=== PATIENT | female | born 1995 | race Caucasian/White ===

== ENCOUNTER 2016-09-07 15:30 | Emergency (ER) | payer OTHER ==
[~2016-09-07 15:30] MED LIST: IBUP100O80 PO; ONDA8TAB10 PO
[2016-09-07 15:44] VITALS: BP 110/82; PULSE 80; RESP 16; O2SAT 100
--- NOTE | 2016-09-07 16:04 | ED.REPORT ---
HPI-Psychiatric Illness Date of Service Sep 07, 2016 ED Provider: Saw Lugo MD Patient is a 20 year old female who presents to the ED via police after telling her college counselor that she is feeling suicidal due to increased stress. She reports that she has had suicidal ideations for the past year that have been getting worse over the past month or so. She states "I try not to act on those thoughts but I have done it once before" and "I am afraid of dying so that helps keep me from doing it". She does report to self mutilating via cutting as recently as a week ago. She has active plans for committing suicide based on her environment. Her plans range from jumping off of buildings, jumping in front of traffic, and overdosing on pills. She was previously prescribes Citalopram which she took for a few months but stopped taking about a week ago because she ran out and is not sure if she still has insurance. She reports that is was not helpful and she still had suicidal thoughts. She does not have any prior psychiatric admissions but she was seen in the department in May for an attempted overdose. She is not currently working with a psychiatrist. She does not have any further complaints. Nursing Notes Stated Complaint: SUICIDAL Chief Complaint: Psychiatric Complaint Nursing Notes Reviewed: Yes (LendingStandard not reconciled) Allergies: Coded Allergies: No Known Allergies (Unverified , 01/21/16) Scheduled Ibuprofen (Child Ibuprofen) 100 Mg/5 Ml Oral.susp 400 MG PO QID Scheduled PRN Ondansetron ODT (Ondansetron ODT) 8 Mg Tab.rapdis 8 MG PO QID PRN PRN For Nausea General Time Seen by MD: 15:40 Chief Complaint Suicidal ideation Hx Obtained From: Patient Arrived By: Police Immunizations: Unknown Similar Sx Previous: Yes Risk-Psychiatric Illness Suicide Risk Stratification Suicide Risk Factors - Adult: : Previous attemptNo: Prior psych admission RF Statements: Risk factors reviewed Past Medical History Past Medical History Notes: Injury visit 06/02/2016 for depression with intentional overdose, evaluated by DCR and discharged to home Past Medical History Anxiety "Back issues" bulimia Reports: GERD Reports: Depression Past Surgical History None Smoking History Never Smoker Social History Independent, lives locally and works at [employer] Alcohol Use: Denies alcohol use Drug Use: Denies drug use Other Social History: Good social support, Local resident Ambulatory Status Independent Review of Systems Psychiatric: Reports: Depression, Stress, Suicidal ideation, Denies: Homicidal ideation Complete sys rev & neg: except as marked. Physical Exam Initial Vital Signs Vital Signs (First) Date Time Temp Pulse Resp B/P Pulse Ox O2 Delivery O2 Flow Rate FiO2 09/07/16 15:44 36.1 80 16 110/82 100 Room Air Initial VS: Reviewed, Vital signs normal Head / Eyes: Atraumatic, Normocephalic Neck: Full range of motion Respiratory: No respiratory distress Cardiovascular: Regular rate & rhythm, Heart sounds normal Skin: Warm, Dry General/Constitutional: Awake, Alert, Well developed Not intoxicated or in withdrawal. Neurologic: Oriented X3, Speech NL Abnormal Mood/Affect: Positive: Depressed Limited insight Upper Extremity / MS: Full range of motion Superficial healed scars on both forearms. Interpretation & Diagnostics Lab Results Interpretation Result Diagram: 09/07/16 1622 09/07/16 1622 Test 09/07/16 15:45 09/07/16 16:22 Hold Urine Received (Received) White Blood Count 6.1th/mm3 (3.8-10.1) Red Blood Count 4.71mil/mm3 (3.90-5.20) Hemoglobin 13.5g/dL (12.0-15.6) Hematocrit 40.0% (35.0-46.0) Mean Corpuscular Volume 84.9fL (81-100) Mean Corpuscular Hemoglobin 28.7pg (27.0-35.0) Mean Corpuscular Hemoglobin Concent 33.8% (32.0-37.0) Red Cell Distribution Width 12.1% (12.3-15.4) Platelet Count 307bil/L (150-400) Neutrophils (%) (Auto) 42.6% (40-74) Lymphocytes (%) (Auto) 45.8% (14-46) Monocytes (%) (Auto) 9.9% (4-12) Eosinophils (%) (Auto) 1.0% (0-5) Basophils (%) (Auto) 0.5% (0-3) Sodium Level 139mEq/L (134-144) Potassium Level 4.0mEq/L (3.5-5.2) Chloride Level 99mEq/L (97-108) Carbon Dioxide Level 28mmol/L (18-29) Blood Urea Nitrogen 7mg/dL (6-20) Creatinine 0.56mg/dL (0.57-1.00) Estimat Glomerular Filtration Rate 200mL/min (>59) Glucose Level 101mg/dL (60-99) Calcium Level 9.4mg/dL (8.5-10.1) Total Bilirubin 0.2mg/dL (0.0-1.2) Aspartate Amino Transf (AST/SGOT) 19U/L (0-50) Alanine Aminotransferase (ALT/SGPT) 14U/L (0-32) Alkaline Phosphatase 77U/L (25-150) Total Protein 7.3g/dL (6.4-8.4) Albumin 4.6g/dL (3.4-5.0) Thyroid Stimulating Hormone (TSH) 1.940uIU/mL (0.450-4.500) Hold Milner Top Tube Received (Received) Alcohol, Quantitative < 10mg/dL (0-10) Lab Results Interpretation: CBC normal CMP normal negative U tox negative Alcohol negative Re-Eval/Medical Decision Med Decision/Clinical Course This is a 20-year-old female was referred in by school counselor after she disclosed worsening suicidal ideation or the past month, although the patient admits to intermittent suicidal ideation for a longer period. She has had 1 prior attempt ED presentation in May following an overdose. She states she is not really followed up with a counselor or psychiatrist to date. As tried citalopram which she did not think helped at all, and she discontinued several weeks ago-and is not clear how the discontinuation occurred, if it was intentional, for insurance and lack of medication access, or for some other reason. suicidal aeration but has no specific plan, reports suicidal thoughts are contextual-making a comments that sometimes when she sees medicines she thinks about overdose, which is in traffic he thinks about a traffic accident, which she is on a upper floor she thinks about jumping off-but does not think that she actually jumped out, and states that he then adds the statement that "I hope I do not". He does admit to self cutting intermittently, and has some scars on her forearms , but no active wounds. He adamantly denies any recent self harm attempts or overdose. She denies alcohol or drugs. She has a flat, depressed affect. She has limited insight and judgment. He does not appear clinically intoxicated or withdrawal. Aside from the scars on the arms has no other physical exam findings. She is required to have an alcohol level drawn prior to the mental health evaluation, and breathalyzer in the department is not currently functioning, so lab draw was obtained-labs were normal. The patient was seen by the ASSOCIATE SPA DIRECTOR. The patient has agreed to contract for safety , and agrees to a next day follow-up appointment at [facility]. The patient discharged in stable condition. Source of Hx: Old records Re-Evaluation/Progress : Time of Eval: 18:39 )( Re-Eval Psychiatric: No danger to self Re-Evaluation/Progress Note: Patient contracts to safety with social work nurse and agrees to follow up with [facility] tomorrow. Discussed plan for discharge. Patient understands and agrees with plan. All questions addressed at this time. Differential Diagnosis: Positive: Depression, Mood disorder, Suicidal, Negative: Alcohol abuse, Homicidal, Polysubstance abuse, Schizophrenia, Substance abuse Counseled Regarding: Diagnosis, Lab results, Need for follow-up, When/why to return to ED Discharge & Departure Impression: Primary Impression: Depression Depression Type: unspecified Qualified Code: F32.9 - Major depressive disorder, single episode, unspecified Additional Impression: Suicidal ideations )( Condition at Discharge: No danger to self Disposition: Home Discharge Condition All VS Reviewed: Yes Condition: Stable Additional Instructions: 1. Keep the next day appointment that the mental health worker has arranged. 2. Maintain your safety at home as agreed. Call the crisis line at [phone] or return to the emergency department if you do not feel you can remain safe. 3. Your blood work was normal. Referrals: Melvin Currie MD (PCP) Scribe Attestation Portions of this note were transcribed by Kely Tompkins. I, Dr. Lugo personally performed the history, physical exam and medical decision-making; I reviewed and confirmed the accuracy of the information in the transcribed note. Signed by: Kely Tompkins 09/07/2016, [id number] copies to: Melvin Currie MD, Matthew F MD Sep 07, 2016 16:04 KELY TOMPKINS Sep 07, 2016 16:46
[2016-09-07 16:32] LABS: BASOPHILS % (AUTO) 0.5 % (0-3); MONOCYTES % (AUTO) 9.9 % (4-12); Mean Corpuscular Hemoglobin 28.7 pg (27.0-35.0); Mean Corpuscular Volume 84.9 fL (81-100); NEUTROPHILS % (AUTO) 42.6 % (40-74); Platelet Count 307 bil/L (150-400)
[2016-09-07 18:42] VITALS: BP 116/77; PULSE 77; RESP 18; O2SAT 98
[2016-09-07 19:46] VITALS: BP 128/77; PULSE 83; RESP 24; O2SAT 99
== END 2016-09-07 19:48 | disposition home or self-care (01) ==
LOC: SED 15:30
DX: F32.9 Major depressive disorder, single episode, unspecified (principal); R45.851 Suicidal ideations; K21.9 Gastro-esophageal reflux disease without esophagitis
CPT/HCPCS: 36415; 80053; 81002; 81025; 84443; 85025; 99284; G0480

== ENCOUNTER 2016-10-05 19:14 | Inpatient (IN) | payer OTHER ==
[~2016-10-05] VITALS: Ht 151.9 cm; Wt 72.3 kg
[2016-10-05 19:20] VITALS: BP 135/94; PULSE 112; RESP 15; O2SAT 100
--- NOTE | 2016-10-05 19:43 | ED.REPORT ---
HPI-Overdose/Alcohol Toxicity Date of Service Oct 05, 2016 ED Provider: Carlos Herrera MD Patient is a 20 year old female who presents to the ED after taking about 20-25 cyclobenzaprine tabs at 1800 tonight as a suicide attempt. She states she regrets taking the medication which is why she called for help. She took them because she "wanted to " and feels "worthless". She denies using drugs or alcohol tonight. She denies homicidal ideations, hallucinations, or any other symptoms. She previously attempted suicide by taking acetaminophen. Nursing Notes Stated Complaint: TOOK ABOUT 30 FLEXERAL Chief Complaint: Substance Abuse Nursing Notes Reviewed: Yes Allergies: Coded Allergies: No Known Allergies (Unverified , 10/05/16) Scheduled Ibuprofen (Child Ibuprofen) 100 Mg/5 Ml Oral.susp 400 MG PO QID Scheduled PRN Ondansetron ODT (Ondansetron ODT) 8 Mg Tab.rapdis 8 MG PO QID PRN PRN For Nausea General Time Seen by Provider: 19:42 Chief Complaint Suicidal attempt Hx Obtained From: Patient Arrived By: Walk-in Onset Occurred: 1 - 4 hours ago Immunizations: All up to date Similar Sx Previous: Yes Risk-Overdose/Alcohol Tox )( Suicide Risk Stratification : Previous attemptNo: Alcohol use, Substance abuse RF Statements: Risk factors reviewed Past Medical History Past Medical History Notes: Injury visit 06/02/2016 for depression with intentional overdose, evaluated by DCR and discharged to home Past Medical History Anxiety "Back issues" bulimia Reports: GERD Reports: Depression Past Surgical History None Smoking History Never Smoker Social History Independent, lives locally and works at [employer] Previous suicide attempts. Alcohol Use: Denies alcohol use Drug Use: Denies drug use Other Social History: Good social support, Local resident Ambulatory Status Independent Review of Systems Constitutional: Denies: Fever GI: Denies: Nausea, Vomiting Psychiatric: Reports: Suicidal ideation, Denies: Hallucinations, auditory, Hallucinations, visual, Homicidal ideation Complete sys rev & neg: except as marked. Physical Exam Initial Vital Signs Vital Signs (First) Date Time Temp Pulse Resp B/P Pulse Ox O2 Delivery O2 Flow Rate FiO2 10/05/16 19:20 36.9 112 15 135/94 100 Room Air Initial VS: Reviewed Head / Eyes: Atraumatic, Normocephalic Skin: Warm, Dry General/Constitutional: Awake, Alert, Well developed Respiratory / Chest: Breath sounds NL, Breath sounds = bilat, No respiratory distress Cardiovascular: Heart rate NL, Regular rhythm, Heart sounds NL Abdomen: Soft, Non-tender, BS normoactive Neurologic: Speech NL Psychiatric: No hallucinations Abnormal Mood/Affect: Positive: Depressed Abnormal Thinking / Perception: Positive: Insight abnormal, Judgment abnormal, Suicidal, with plan ENT: Mucous membranes moist Interpretation & Diagnostics Lab Results Interpretation Result Diagram: 10/05/16194310/05/161943 Test 10/05/16 19:44 10/05/16 19:58 10/05/16 23:45 White Blood Count 6.6th/mm3 (3.8-10.1) Red Blood Count 4.53mil/mm3 (3.90-5.20) Hemoglobin 12.9g/dL (12.0-15.6) Hematocrit 38.5% (35.0-46.0) Mean Corpuscular Volume 85fL (81-100) Mean Corpuscular Hemoglobin 28.5pg (27.0-35.0) Mean Corpuscular Hemoglobin Concent 33.5% (32.0-37.0) Red Cell Distribution Width 12.1% (12.3-15.4) Platelet Count 304bil/L (150-400) Neutrophils (%) (Auto) 51% (40-74) Lymphocytes (%) (Auto) 36% (14-46) Monocytes (%) (Auto) 12% (4-12) Eosinophils (%) (Auto) 1% (0-5) Basophils (%) (Auto) 0% (0-3) Sodium Level 141mEq/L (134-144) Potassium Level 3.5mEq/L (3.5-5.2) Chloride Level 102mEq/L (97-108) Carbon Dioxide Level 23mmol/L (18-29) Blood Urea Nitrogen 11mg/dL (6-20) Creatinine 0.55mg/dL (0.57-1.00) Estimat Glomerular Filtration Rate 204mL/min (>59) Glucose Level 123mg/dL (60-99) Calcium Level 9.1mg/dL (8.5-10.1) Total Bilirubin 0.2mg/dL (0.0-1.2) Aspartate Amino Transf (AST/SGOT) 20U/L (0-50) Alanine Aminotransferase (ALT/SGPT) 18U/L (0-32) Alkaline Phosphatase 69U/L (25-150) Total Protein 7.2g/dL (6.4-8.4) Albumin 4.8g/dL (3.4-5.0) Thyroid Stimulating Hormone (TSH) 3.430uIU/mL (0.450-4.500) Hold Milner Top Tube Received (Received) Salicylates Level < 3.0ug/mL (30-250) Hold Urine Received (Received) Lab Results Interpretation: Urine tox negative Urine preg negative ECG Interpretation ECG Interpretation: Sinus rate 80 no abnormalities Time: 20:11 Interpreted by: ED physician ECG Interpretation: Sinus tachy rate 113 Normal intervals Time: 23:45 Interpreted by: ED physician Re-Eval/Medical Decision Med Decision/Clinical Course 20-year-old female with an intentional overdose on cyclobenzaprine. Initial acetaminophen is not detected repeat is pending. She is having some somnolence and tachycardia are mildly dilated she will be admitted to the hospitalist service for observation. This was a suicidal ingestion, the patient will require mental health evaluation following this. Re-Evaluation/Progress : Time of Eval: 23:28 Re-Evaluation/Progress Note: Patient rechecked. She is somulant and uncooperative. Informed patient of plan for admission. Consultation #1: Call Returned at: 23:27 Note: Contacted poison control. Suggests holding for observation. Consultation #2: Referral / Consult Name: Alejandra Gilbert DO Consulted With: Hospitalist Call Returned at: 23:37 Studio Model: Will see patient, Agrees with eval, Agrees with plan, Accepts admit Note: Discussed patient's case. Accepts admit. Counseled Regarding: Diagnosis, Lab results, Need for admission Discharge & Departure Impression: Primary Impression: Suicide attempt by drug ingestion Encounter type: initial encounter Qualified Code: T50.902A - Poisoning by unspecified drugs, medicaments and biological substances, intentional self-harm , initial encounter Disposition: ADMITTED TO HOSPITAL Referrals: Melvin Currie MD (PCP) Scribe Attestation Portions of this note were transcribed by Kely Tompkins. I, Dr. Herrera personally performed the history, physical exam and medical decision-making; I reviewed and confirmed the accuracy of the information in the transcribed note. Signed by: Kely Tompkins 10/05/16, [id number] copies to: Melvin Currie MD, Donald L MD Oct 05, 2016 19:43 KELY TOMPKINS Oct 05, 2016 20:19
[2016-10-05 20:02] LABS: Mean Corpuscular Hemoglobin 28.5 pg (27.0-35.0); Mean Corpuscular Volume 85 fL (81-100); Platelet Count 304 bil/L (150-400)
[2016-10-05 20:03] LABS: BASOPHILS % (AUTO) 0 % (0-3); EOSINOPHILS % (AUTO) 1 % (0-5); MONOCYTES % (AUTO) 12 % (4-12); NEUTROPHILS % (AUTO) 51 % (40-74)
[2016-10-05] MEDS ORDERED: Ondansetron 2 mg/mL 2 mL Inj IVPUSH ONE (21:40)
[2016-10-05 23:25] VITALS: BP 105/89; PULSE 99; RESP 18; O2SAT 91
[2016-10-05] MEDS ORDERED: Polyethylene Glycol (PEG) 17 Gm Powder PO PRN (23:40)
[2016-10-05] MEDS ORDERED: Ondansetron 2 mg/mL 2 mL Inj IVPUSH PRN (23:40)
[2016-10-05] MEDS ORDERED: Alum-Mag Hydrox-Simeth 30 mL Suspension PO PRN (23:40)
[2016-10-06 00:28] VITALS: BP 120/73; PULSE 110; RESP 22; O2SAT 100
--- NOTE | 2016-10-06 01:00 | PCM.HPMED ---
Subjective Date of Service Oct 06, 2016 Primary Provider: Admitting Physician: Alejandra Gilbert DO Primary Care Physician: Melvin Currie MD Attending Physician: Alejandra Gilbert DO Admit Status: From the Emergency Department Chief Complaint: Intentional overdose History of Present Illness: Rose Marie is a 20-year-old girl who presented to the emergency department after taking between 20-25 cyclobenzaprine tabs around 6:00 PM on 10/05/2016. Patient did not participate with my admit encounter, history of present illness documentation taken from ER record. Reportedly, "she states regret for taking the medication which is why she called for help. She took them because "she wanted to " and feels "worthless". She denies using drugs or alcohol tonight. She denies homicidal ideation, hallucination or any other symptoms. She previously attempted suicide by taking acetaminophen." In the ER her vital signs were temperature 36.9, heart rate 112, respirations 15 , blood pressure 135/94, pulse ox 100% on room air. CBC was unremarkable with a normal differential, CMP had a creatinine of 0.55, and blood glucose 123. Serum salicylates were less than 3.0, acetaminophen level less than 15. Repeat acetaminophen level is pending. Poison control was contacted who suggested keeping the patient for observation. Review of Systems: Unable to obtain review of systems, patient did not answer any verbal request. Allergies Coded Allergies: No Known Allergies (Unverified , 10/05/16) Home Medications Scheduled Ibuprofen (Child Ibuprofen) 100 Mg/5 Ml Oral.susp 400 MG PO QID Scheduled PRN Ondansetron ODT (Ondansetron ODT) 8 Mg Tab.rapdis 8 MG PO QID PRN PRN For Nausea Outpatient records shows that she was on citalopram 20 mg daily, has not been renewed since 12/23/2015 PMH Anxiety "Back issues" bulimia Reports: GERD Reports: Depression Surgical History No surgical history Family History Maternal grandmother has diabetes Mother has depression Social History Occupation: works at [employer] Hx Alcohol Use: No Hx Substance Use: No Smoking Status: Never Smoker Additional Information Previous suicide attempts Exam Vital Signs Vital Sign - Last Date Time Temp Pulse Resp B/P Pulse Ox O2 Delivery O2 Flow Rate FiO2 10/06/16 00:32 103 21 108/51 97 Room Air 10/06/16 00:28 36.6 Exam Patient is lying in bed, appears pale, she does not take knowledge verbal commands or requests. Eyes are closed. HEENT: Normocephalic, atraumatic, EOMI grossly, patient will not open mouth, or allow conjunctiva or pupils to be assessed, she swipes examiner's hand away and keeps eyes closed. Cardiovascular: Tachycardic no clicks murmurs rubs, peripheral pulses 2/4 equal bilaterally Pulmonary: Clear to auscultation bilaterally, no W/R/R. Abdominal: Soft to palpation, bowel sounds present 4, no hepatosplenomegaly. Negative rebound. Extremities: No edema appreciated. No tenderness, asymmetry. Superficial lacerations to upper extremities, and proximal bilateral thighs. Neuro: L4 reflex intact on the right side, unable to get additional reflexes. MSK: Strength is 5 out of 5 upper and lower extremities, however she does not follow commands for proper assessment. Lab and Diagnostics Result Diagram: 10/05/16194310/05/161943 12-lead ECG 10/05/2016 2342 Sinus tachycardia, heart rate 113, [place] interval 142, QTC 461, no signs of acute infarct or ischemia. Normal axis. 10/05/2016 195 Sinus, heart rate 80, [place] 144, QTC 424, no sign of acute infarct or ischemia, normal axis. Assessment & Plan 20-year-old woman with history of previous suicide attempts presents after self reportedly ingesting 20-25 pills of cyclobenzaprine in a suicide attempt. Found to be developing tachycardia and somnolence. #1 acute intentional overdose cyclobenzaprine, present on admission, evaluation and treatment ongoing. Patient stated ingestion, no attempt at regurgitation. Acetaminophen levels negative 2. Patient remains tachycardic Poison control has been contacted, they suggested admission for observation particularly for anticholinergic poisoning. Tmax is reported 4-6hrs after ingestion, duration is unknown. Monitor QTC Place patient on patient relations representative cardiac activity or prolonged QTC and anticholinergic poisoning leading to possible arrhythmia. Repeat EKG 0500. TSH normal. Request a sitter once patient awakens. #2 recurrent suicide attempt, present on admission, evaluation and treatment ongoing. Previous attempts with ingesting over the counter medication i.e. Tylenol. We will request medical social work evaluation through on their opinion may request psychiatric evaluation for need for inpatient psychiatric treatment. Once patient is awake, confirm if patient is on antidepressant medications, and if she sees counselor, Check TSH, and serum drug screen. Pain Evaluation: Adequate Pain Control GI Prophylaxis: Not indicated VTE Prophylaxis: Sub-Q Heparin (Unfractionated) Resuscitation Status: CPR: Attempt Resuscitation Attending Statement The patient was seen and examined together with house staff on 10/06/2016 and I agree with the history, exam and plan as outlined in the note above. Gilbert Dao DO Oct 06, 2016 01:00 Alejandra Gilbert DO Oct 06, 2016 03:40
[2016-10-06] MEDS: Heparin 5,000 Unit/mL Inj SUBQ SCH ×3 (01:30→16:22)
--- NOTE | 2016-10-06 01:38 | NUR ---
Admission Report taken from CAROLE Hastings in the ED. Pt came into the ED after an intentional overdose. Pt alert and orientated to self at times. Not cooperative with care. Pt refuses to walk, able to scoot self to the bed from stretcher. Not wanting to answer admission questions. Tele placed. JULIO CÉSAR.
[2016-10-06 04:55] VITALS: BP 106/69; PULSE 79; RESP 20; O2SAT 96
[2016-10-06 05:21] VITALS: PULSE 81
[2016-10-06 07:44] VITALS: BP 114/73; PULSE 90; RESP 15; O2SAT 100
[2016-10-06 08:00] VITALS: PULSE 88
--- NOTE | 2016-10-06 08:25 | PCM.PNMED ---
Subjective Date of Service Oct 06, 2016 Subjective patient is relatively shut down and talks very little. She does however deny any dyspnea chest pain or abdominal pain. She is otherwise not willing to answer questions. Exam Vital Signs Vital Sign - Last Date Time Temp Pulse Resp B/P Pulse Ox O2 Delivery O2 Flow Rate FiO2 10/06/16 07:44 37.2 90 15 114/73 100 Room Air Intake and Output 10/05/16 10/05/16 10/06/16 Cumulative From/Thru 15:00 23:00 07:00 10/05/16 19:20 - 10/06/16 05:53 Intake Total 0 ml 0 ml Output Total 0 ml 0 ml Balance 0 ml 0 ml Intake Oral 0 ml 0 ml Output Urine Total 0 ml 0 ml # Bowel Movements 0 0 Exam Flat affect, not maintaining eye contact No distress. Lungs are clear with normal rate and effort. Heart is regular without murmur. Abdomen soft nontender. Extremities are free of edema good pedal and radial pulses. IVs and Medications Medications Reviewed: Medications were reviewed in detail Lab and Diagnostics Result Diagram: 10/05/16194310/05/161943 12-lead ECG 10/05/2016 2342 Sinus tachycardia, heart rate 113, NM interval 142, QTC 461, no signs of acute infarct or ischemia. Normal axis. 10/05/2016 1957 Sinus, heart rate 80, NM 144, QTC 424, no sign of acute infarct or ischemia, normal axis. Assessment & Plan 20-year-old woman with history of previous suicide attempts presents after self reportedly ingesting 20-25 pills of cyclobenzaprine in a suicide attempt. Found to be developing tachycardia and somnolence. #1 acute intentional overdose cyclobenzaprine, present on admission, evaluation and treatment ongoing. Patient stated ingestion, no attempt at regurgitation. Acetaminophen levels negative 2. Patient remains tachycardic Poison control has been contacted, they suggested admission for observation particularly for anticholinergic poisoning. Tmax is reported 4-6hrs after ingestion, duration is unknown. Monitor QTC Place patient on pneumatic tool repairer cardiac activity or prolonged QTC and anticholinergic poisoning leading to possible arrhythmia. Repeat EKG 0500. TSH normal. Request a sitter once patient awakens. The patient is medically clear at this point. We will move on with mental health evaluation and probable psychiatry consultation. #2 recurrent suicide attempt, present on admission, evaluation and treatment ongoing. Previous attempts with ingesting over the counter medication i.e. Tylenol. We will request medical social work evaluation through on their opinion may request psychiatric evaluation for need for inpatient psychiatric treatment. Once patient is awake, confirm if patient is on antidepressant medications, and if she sees counselor, Check TSH, and serum drug screen. Pain Evaluation: Adequate Pain Control GI Prophylaxis: Not indicated VTE Prophylaxis: Sub-Q Heparin (Unfractionated) Resuscitation Status: CPR: Attempt Resuscitation Time spent 30 min Jaziel Swanson MD Oct 06, 2016 08:25
--- NOTE | 2016-10-06 12:38 | NUR ---
Mental Health Assessment Rose Marie Gonzales 1995 Precipitating Problem: Pt admitted to [facility] after an intentional overdose of cyclobenzaprine. DIE STAMPING PRESS OPERATOR met with pt at bedside. Pt reported to DIE STAMPING PRESS OPERATOR that she has been feeling depressed with daily suicidal ideation for several months. Pt provided little explanation/insight to circumstances surrounding her suicide attempt and only states "my desire to overpowered my fear of dying." Pt states that after intentionally ingesting the medication she panicked and call someone to take her to the hospital. Pt denies any acute thoughts of suicide at this time and then states "I always have thoughts and am thinking about a plan to kill myself, I just hope I don't do it." Pt denies any coping mechanisms other than self-harm cutting on her fore-arms. Through persistent questioning, pt states that she has been living at the [facility] for several weeks and recently withdrew from college due to lack of motivation, poor attendance and a lack of energy to participate in classes. Pt reports that she has experienced intermittent insomnia since moving into the [facility] and cites "stress about being an adult as the source." Pt also reports periods of hypersomia in which she sleeps through the day and does not get out of bed. Pt reports a decreased appetite and states she has not eaten for three days. Pt was seen by ED DIE STAMPING PRESS OPERATOR on 09/07 for similar suicidal ideation. Pt was able to contract for safety and was setup with an next-day crisis appointment through [facility]. Pt states she did not attend this appointment and has not yet seen a therapist with [facility]. Pt denies any current psychiatric or medical medications. Mental Status: Pt is a 20 year old female. Pt is poorly groomed and unkempt dressed in hospital gowns. Pt is alert and oriented x4. Pt does not make eye contact with DIE STAMPING PRESS OPERATOR and keeps eyes closed for the majority of assessment. Pt is apathetic towards assessment and is ambiguous with questioning. Speech is limited with weak and sometimes inaudible responses. Pts thought processes are clear and linear with limited insight and judgment. Psychiatric History: Pt has no previous psychiatric hospitalizations. Pt reports one previous suicidal attempt in May of 2016 but did not participate in counseling after. Pt is still not enrolled in outpatient mental health treatment. Pt has no current psychiatric prescriptions. CD History: Pt denies all substance use and ETOH use. BAL was 0 and UTOX was negative for all substances. Legal History: Pt reports no legal history Diagnosis: F32.9 Unspecified Depressive Disorder Disposition: Pt not reporting acute suicidal ideations however also simultaneously reports active thoughts and cannot guarantee safety post discharge. Pt is not able or willing to engage in meaningful discussion about safety planning. Pt is not responsive towards inpatient psychiatric treatment and would require DMHP evaluation. Based on pts chronic history of suicidal ideation, the severity of her recent attempt, minimal engagement with assessment, pt is a candidate for DMHP evaluation. Further supporting evidence for DMHP dispatch includes pts recent functional impairment including her loss of housing and withdrawal from school, along with neglect of her daily ADLs and failed outpatient appointments. Pt requires DMHP assessment to determine whether she is gravely disabled due to her mental illness. DIE STAMPING PRESS OPERATOR staffed with who agrees with DIE STAMPING PRESS OPERATOR recommendation to dispatch the DMHPs. DIE STAMPING PRESS OPERATOR awaiting lab to return test results before dispatching. ANNIE Celeste
--- NOTE | 2016-10-06 13:52 | NUR ---
Case Management: Clarification of patient status: Inpatient per MD order 10/06/16. Ismael Barboza RN
--- NOTE | 2016-10-06 15:54 | PCM.DIMED ---
Discharge Instructions Date of Service Oct 06, 2016 Dates of Hospitalization Oct 05, 2016 at 23:50 Discharge Diagnosis Discharge Diagnosis 1. Suicide attempt, with overdose of Flexeril. Patient was cleared by the [facility] for discharge home with close outpatient follow-up. 2. Depressive disorder Diet No restrictions Activity No restrictions Patient Instructions Outpatient mental health follow-up is provided by mental health worker. Jaziel Swanson MD Oct 06, 2016 15:53
--- NOTE | 2016-10-06 18:07 | NUR ---
TRANSFER TO MENTAL HEALTH DM here to evaluate patient, decision made to detain patient to [facility]. Patient voices extreme displeasure with this decision, but understands that she does not have much say, given her situation. Report called to Anjel in mental health. IV removed, and patient transported to mental health via wheelchair w/ CAST SHELL GRINDER and security. Court paperwork and [facility] assessment sent along with all patient belongings.
--- NOTE | 2016-10-06 18:13 | NUR ---
Nursing Transfer Note: Patient arrived on the unit at 1800 escorted by P[facility] staff and security in a wheelchair. CECE'd on a 72 hour hold due to being a danger to self. Had OD'd on 20-30 Flexeril tablets per records. Has had a previous SA of a Tylenol OD. Up and out of the wheelchair without problems and with a steady gait. Solemn when on the unit. Poor eye contact. Softspoken. Will monitor mood and behavior.
[2016-10-06] MEDS ORDERED: Alum-Mag Hydrox-Simeth 30 mL Suspension PO PRN (19:15)
[2016-10-06] MEDS ORDERED: Magnesium Hydroxide 10 mL Oral Concentration PO PRN (19:15)
[2016-10-06] MEDS ORDERED: Benzocaine-Menthol Lozenge 2/Pkg PO PRN (19:15)
[2016-10-06] MEDS ORDERED: LORazepam 1 mg Tablet PO PRN (19:15)
--- NOTE | 2016-10-07 05:45 | NUR ---
Nursing Note Physician Assistant 7p -7apm Pt in bed at start of shift and slept soundly until 0245 when she woke up. Pt came into the day room requesting a snack. Pt denied SI, plan or intent or impulses to self harm. She reported feeling safe and agreed to come to staff for support if thoughts of self harm arise. Pt declined offer of sleep meds. Monitored q 15 minutes for safety, location and accountability
[2016-10-07 09:34] LABS: BASOPHILS % (AUTO) 0.4 % (0-3); EOSINOPHILS % (AUTO) 1.7 % (0-5); Mean Corpuscular Volume 87.2 fL (81-100); NEUTROPHILS % (AUTO) 57.2 % (40-74); Platelet Count 274 bil/L (150-400)
[2016-10-07 10:57] VITALS: BP 122/76; PULSE 86; RESP 16
--- NOTE | 2016-10-07 14:34 | NUR ---
Sales And Service Specialist./c.m. S.:"I'm a little sleepy... feel bored." O.: met with pt. for initial interview. Pt. is CECE 72 hrs hold as DTS. This is her 1st psych. hospitalization. She is connected with [facility] for counseling. She wasn't taking medications. She has hx of 1 SA in 2015. She has hx of cutting, depression and poor impulse control. She lives at [facility] in [facility]. She doesn't have close friends and she doesn't have close relationship with her family. She said that she "had too much stress" so she "couldn't use coping skills". She made 2nd SA recently. She denied SI/HI today. She denied AH/VH or paranoid/delusional thoughts. She denied depression or anxiety. She was upset about being here because she didn't feel a need to be in the hospital. "I know all coping skills and I don't need medications." She didn't come for breakfast but she agreed to eat lunch. She felt "dizzy". She complained about a sore throat while she was eating. A.: pt. is isolative, cooperative, guarded, has poor insight. She has a flat affect and limited eye contact. P.: monitor behavior, engage pt. in the program, monitor for safety, follow care plan.
--- NOTE | 2016-10-07 14:38 | NUR ---
Nursing Dayshift: S: "My friends who I usually talk to were the ones causing the stress so I had no one to talk to." O: Patient relating to why she OD'd. Has been quiet today. Declined breakfast. Ate 50% of lunch. More communicative this afternoon. Clothes washed and patient showered. Denies anxiety, depression, harmful thoughts, and hallucinations. Denies needing to be here. A: Flat affect. Brighter during interaction. P: CPOC. Monitor mood and behavior.
[2016-10-07] MEDS: DULoxetine 20 mg DR Capsule PO SCH (15:12)
[2016-10-07] MEDS: BusPIRone 15 mg Dividose Tablet PO SCH ×2 (15:12→20:18)
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
--- NOTE | 2016-10-07 20:14 | NUR ---
MHA Note 10/07/16 D- Patient declined breakfast but ate half of lunch and half of dinner. She did not attend to any overt ADLS although she appears moderately groomed. Patient attended one of three structured actives. She complained of boredom but then declined to speak or engage with peers when invited to the first group. A- Patient started the day non-verbal. When staff attempted to engage with her she either shook her head or rolled over and declined to interact. She was invited to join us for breakfast and again to play [employer]. She complained about being bored but when introduced to her peers she returned to her room. After that she was mute but cooperative with staff requests. This includes going to a group about DBT which discussed self-harm behaviors and emotion regulation. She kept her head down through most of the group until self-harm and black and white thinking were brought up. Patient has since changed from scrubs into her pajamas from home. She has been out in the milieu but with minimal engagement with peers. She has called some family and friends. P- Continue current treatment plan with consideration for Cluster B traits.
--- NOTE | 2016-10-08 03:04 | NUR ---
Nursing Note- Evening Shift 7pm to 11pm P received in bed at start of shift in her [employer] reading. Pt reported she is an avid reader and uses this as a stress relieved. [place] language instruction book at bedside. Pt said she has been learning armenian for several years and shared some phrases with this proposal lead writer. Pts is pleasant and calm, reports feeling lethargic and reports sleeping for most of the day. Coaxed pt to come to the dining room for wrap up group which she did with some hesitation. Pt reported she has not engaged in self- mutilation or binging activities for the last 6 months except for 1 x and has been trying to use grounding and distracting techniques to relieve stress. She reported feeling surprised at how much support she has gotten from friends on face book ,when word got out she was in the hospital. " I didn't realize so many people cared about me. I can't talk to most of my closest friends about my problems because they think I am overly dramatic". Pt reports depression 5, anxiety a 6. Denies SI, plan or intent. She denies A/VH and no psychosis was observed. Pt is medication compliant. No prns given this shift. Monitoring ongoing for safety, location and accountability.
--- NOTE | 2016-10-08 05:35 | NUR ---
nursing, nights, 11-7 s/o- has appeared to sleep after 2330 during q 15 minute assessments. a- no apparent distress. p- monitor behavior/emotional state, quality, times and amount of sleep, use and effect of medication. patricio
[2016-10-08] MEDS: BusPIRone 15 mg Dividose Tablet PO SCH ×2 (07:54→19:53)
[2016-10-08] MEDS: DULoxetine 20 mg DR Capsule PO SCH (07:54)
[2016-10-08 09:00] VITALS: BP 118/70; PULSE 93; RESP 15
--- NOTE | 2016-10-08 11:53 | PCM.PNPSY ---
Subjective Date of Service Oct 08, 2016 Subjective I spent 30 minutes both reviewing treatment plan and providing supportive/ educational psychotherapy. I spent more than 50% of the time counseling the patient. I reviewed the treatment plan with the patient and discussed options available including the potential risks, benefits and side effects. Rose Marie reports a mild improvement in mood stability. Staff reports that she has been active and participating well in one-to-one unit and group activities. She slept 7 hours and denies latha or psychotic symptoms review. She is beginning to future plan how to take care of her needs after she is discharged. She denied suicidal ideation plan or intent. She denies medication side effects. Patient was able to identify her medications and what they were used to treat. She appeared to understand the need for medications by the questions she asked during our discussion. Current Medications Current Medications Buspirone HCl 5 mg BID PO Last administered on 10/08/16 07:54; Admin Dose 5 MG ; Start 10/07/16 at 14:10 Duloxetine HCl 20 mg DAILY PO Last administered on 10/08/16 07:54; Admin Dose 20 MG; Start 10/07/16 at 14:10 Mental Status Exam Appearance: Neat/well groomed Attitude: Pleasant, Cooperative Behavior: No unusual behavior Affect: Well Modulated/Appropriate Mood: Dysthymic, Anxious Thought Process/Associations: Logical/Sequential, Goal Directed Speech Production: Normal Speech Rate: Normal Speech Articulation: Normal Thought Content: Appropriate Danger to Self/Suicidal Ideati: None Danger to Others: None Consciousness: Alert Orientation: Person, Place, Date, Situation Memory: Grossly Intact Estimate Intellectual Function: Below Average Basis for IQ estimate: Awareness current events, Word use/vocabulary, Educational history, Employment history Attention/Concentration & Cogn: Grossly Intact Cognitive Testing Method: Abstract Reasoning during interview, Proverb interpretation, Serial computations Insight: Limited Judgement: Good Result Diagram: 10/07/16 0913 10/07/16 0913 Mental Health Plan The patient is a 20-year-old, white female, who recently had to move out of her mother's house and is staying at the [facility]. She is reporting increased symptoms of depression that culminated in a suicide attempt. She had one suicide attempt in May 2016. This is the 2nd in September 2016. She is socially isolated and reports little human resources. She stated that she would be willing to try an antidepressant and she stated that she does have a therapist at [facility]. Rose Marie was easily engaged today and stated she is feeling more confident And calm. She is does not notice a change resulting from medications, But also does not experience medication side effects to Cymbalta and BuSpar. Anticipate discharge early next week. Stuart Stuart I. Depression, unspecified. rule out major depressive disorder rule out posttraumatic stress disorder rule out major depressive disorder rule out posttraumatic stress disorder. Stuart II. Borderline personality traits Stuart III. Recent overdose on 20 cyclobenzaprine tablets. Stuart IV. Severe. Stuart V. Current Global Assessment of Functioning equal to 35 Medications Treatments Patient is being provided with a high degree of safety through the structure and active adult engagement. We will focus on developing improved coping skills and identifying stressors that may have led to current episode. We will attempt to: Integrate into therapeutic groups, milieu and individual therapy. Maintain in a closely monitored and structured unit Provide low-stimulation environment Obtain collateral data to assist in treatment planning Assess degree of lability of affect and impulse control Complete safety plan Decrease frequency of relapse and need for re-hospitalization Denies thoughts of harm to self Establish a consistent sleep pattern Medication effective in stabilization of mood and/or thought process Reduce the risk of imminent harm to self and/or others by providing a safe environment Tolerates medication without side effects Patient will be on the following psychiatric medications: Cymbalta 20 mg daily BuSpar 5 mg twice a day Address patient's legal status Patient is on a 72 hour involuntary treatment hold. Patient will be given the opportunity to talk to her sales service executive Sunday and the patrol judge Sunday Humza Wolf MD Oct 08, 2016 11:53
--- NOTE | 2016-10-08 15:01 | NUR ---
Park Interpreter./ c.m. S.:"I'm fine, mood is neutral." O.: met with pt. in a private room. She slept "a lot" last night. She denied SI/HI, denied AH/VH or paranoid/delusional thoughts, denied depression or anxiety. She said that she had a bed on hold at [facility] but she needed to call and talk to a senior product marketing manager over there before her discharge. She is hoping that she can go back there again. She was surprised by response of her friends about her hospitalization. She didn't expect to have so much support from people. She is hoping to get a job interview in the next few days. "I hope being here won't effect my job interview." She was in and out of her room more after lunch. She is mostly keeping to herself. A.: pt. is cooperative, isolative, quiet, has a flat affect, looks childlike. P.: monitor behavior, coordinate with [facility] and [facility], work on Safety plan; follow care plan.
--- NOTE | 2016-10-08 16:15 | NUR ---
Nursing Notes [id number] S: feeling better today O: Pt is quiet and guarded. Clear and linear speech. Pt has been isolating herself to room, she has read several of her anime books. Pt. has participated with group and interacting with staff and other patients. A: Pt appears well kept today, flat affect. P: Monitor for safety and response to treatment. Follow plan of care for safety/response to treatment. Follow
--- NOTE | 2016-10-08 18:41 | NUR ---
Observations [id number] Pt was asleep upon start of shift. Pt attended all meals, eating 100%. She presents as very timid and shy, not socializing with peers and very childlike in both actions and appearance. Pt read books in her room much of the day. She did not attend group. Pt spent time in the dining area, and walked the halls in the evening with her stuffed animal. She also played the piano for a short amount of time. Pt was observed every 15 minutes of shift as directed.
--- NOTE | 2016-10-08 21:27 | NUR ---
nursing note evenings O) states mood 01/29, enjoyed playing wii with other patients, states is anxious about discharge planning and what she will do when she leaves and how people will react to her, has books in room her mom brought her and is reading, talked to staff about eating disorder and that she hasn't purged for 6 months and no cutting, states it is hard for her because she gets anxious about her weight gain, wears a sweatshirt with rabbit ears A)more social on unit, childlike in her presentation, cooperative P) monitor behavior and encourage participation in treatment
--- NOTE | 2016-10-09 05:09 | NUR ---
Nursing note: table games shift manager/sleep Patient appears to be sleeping on safety checks during the night, offers no complaints
[2016-10-09] MEDS: BusPIRone 15 mg Dividose Tablet PO SCH (08:06)
[2016-10-09] MEDS: DULoxetine 20 mg DR Capsule PO SCH (08:06)
[2016-10-09 11:18] VITALS: BP 124/78; PULSE 105; RESP 15
--- NOTE | 2016-10-09 11:36 | NUR ---
DAYS 7- S/O- Patient states "I am feeling so much better, I didn't think I would like it here, must be the medications" Patient has been appropriate with staff and other patients. Appeared to enjoy electronic games, in group room. A- Patient appears to act childlike, states mood 6/10, and eat all her breakfast. P- Possible discharge today, [facility]? Addendum: 10/09/16 at 1149 by HENRY ANDREA RN Amended: Links added.
--- NOTE | 2016-10-09 12:27 | PCM.DIMED ---
Discharge Instructions Date of Service Oct 09, 2016 Dates of Hospitalization Oct 05, 2016 at 23:50 Discharge Diagnosis Discharge Diagnosis Major Depression Recurrent Severe nonpsychotic Diet No restrictions Activity No restrictions Patient Instructions Outpatient mental health follow-up is provided by mental health worker. Carroll Naik DO Oct 09, 2016 12:27
[2016-10-09] MEDS ORDERED: DULO30CA PO (12:28)
[2016-10-09] MEDS ORDERED: BUSP15TA3 PO (12:28)
--- NOTE | 2016-10-09 14:09 | NUR ---
DISCHARGE Patient discharged at 1405, left with mother's boyfriend Sarwat who will drive her to [place]. Medications reviewed and new Rx's provided. Care notes given on medications and patient verbalized understanding. 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 Patients states "I feel good", denies harm to self or others. Patient has all her belongings including cell phone and books. Denies pain, nausea, and shortness of breath.
--- NOTE | 2016-10-09 14:49 | NUR ---
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 S.:"I'm actually feel happy today. I didn't feel like that for a long time." O.: met with pt. and doctor together to discuss pt.'s progress. Pt. slept well last night. She denied SI/HI, denied AH/VH or paranoid/delusional thoughts, denied depression or anxiety. She described her mood as "pretty good". She felt ready for discharge today. She has follow up appt. with her jameel Cash on October 11 at 11:00 am at [facility] ([phone]). Air Drier called [facility] and talked to a medical appointment scheduler regarding follow up appt. with Melvin Coffey MD at [facility] ([phone]). Operations Program Manager sent an urgent request for an appt. time and date to Bety Coffey MD nurse. Pt. is instructed to call Dr. Currie nurse and to confirm her follow up appt. with her. A.: pt. is cooperative, pleasant, wants to be discharged. P.: monitor behavior, follow care plan.
--- NOTE | 2016-10-10 00:04 | DIS ---
[address] [address] DISCHARGE SUMMARY PATIENT: TITUS TENA : 1995 MR#: [id number] ADMIT: 10/05/2016 JOB ID: [id number] DIS: 10/09/2016 ADMITTING DIAGNOSES: AXIS I: 1. Depression, not otherwise specified. 2. Rule out posttraumatic stress disorder. 3. Rule out major depressive disorder, recurrent type. AXIS II: Borderline personality disorder. AXIS III: Recent overdose of 20 tablets of Flexeril. AXIS IV: Stressors are severe. AXIS V: Global Assessment of Functioning current 35. DISCHARGE DIAGNOSES INCLUDE: AXIS I: 1. Depressive disorder, not otherwise specified. 2. Rule out posttraumatic stress disorder. AXIS II: Borderline personality disorder. AXIS III: None. AXIS IV: Stressors are noted for chronic mental health issues. AXIS V: Global Assessment of Functioning current 40. REASON FOR ADMISSION: Patient was a 20-year-old female who was admitted post medical stabilization after a significant overdose of Flexeril. By history, the patient reportedly was seen at [facility] and noted increasing difficulties with symptoms of depression. During hospital course, patient was initiated on medications, including Cymbalta at 20 mg daily and BuSpar 5 mg b.i.d. She participated in both individual and group therapy components with gains of insight into alternative coping skills and expressed no further evidence of suicidality. On the day of discharge, the patient met with myself and correctional casework specialist, and discussed a willingness to continue with her outpatient care through [facility]. CONDITION AT TIME OF DISCHARGE: Patient's mood and affect were stable. She denied any evidence of current suicidal or homicidal ideation. She denied any active hallucinations, delusions. She was alert, oriented to time and place. Her attention and concentration intact. 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 Insight and judgment are fair. DISCHARGE PLANS INCLUDE: 1. Recommendations to continue on Cymbalta with dose increases to 30 mg, #30, no refills. Reason for usage: Antidepressant. 2. Continuation of BuSpar 5 mg b.i.d., one month supply, no refills. Reason for usage: Anti-anxiety. 3. Follow up with outpatient care providers at [facility] on Sunday at 11 a.m. for ongoing individual therapy with referrals onto medication prescribers. 4. Follow up with Dr. Currie, her primary care physician, in the interim to be scheduled by correctional casework specialist, Karma.
[2016-10-10] MEDS ORDERED: DULoxetine 30 mg DR Capsule PO SCH (08:30)
[2016-10-10] MEDS ORDERED: DULoxetine 20 mg DR Capsule PO SCH (08:30)
== END 2016-10-09 14:05 | disposition home or self-care (01) | DRG 918 ==
LOC: SED 19:14 → PCC 23:50 → OBSVTOIN 23:50 → PCC 10-06 00:15 → MHC 10-06 18:13
PROVIDERS: ADMIT Psychiatry & Neurology Psychiatry; ATTEND Psychiatry & Neurology Psychiatry
DX: T48.1X2A Poisoning by skeletal muscle relaxants [neuromuscular blocking agents], intentional self-harm, initial encounter (principal); F32.9 Major depressive disorder, single episode, unspecified; Z59.0 Homelessness; F60.3 Borderline personality disorder; T14.91 Suicide attempt

== ENCOUNTER 2016-11-15 18:10 | Emergency (ER) | payer OTHER ==
[~2016-11-15] VITALS: Ht 152.4 cm; Wt 85.0 kg
[~2016-11-15 18:10] MED LIST changes: +BUSP15TA3 PO; +DULO30CA PO; -IBUP100O80 PO
[2016-11-15 18:13] VITALS: BP 126/78; PULSE 97; RESP 16; O2SAT 100
--- NOTE | 2016-11-15 20:06 | ED.REPORT ---
HPI-General Illness Date of Service Nov 15, 2016 ED Provider: Etienne Duarte PA-C Rose Marie is an otherwise healthy 21-year-old female who presents with chief complaint of a laceration on her head. States that she was bending over and stood, striking her head on a michael nail. Denies bleeding/clotting problems, diabetes, HIV, immunosuppression. She is unsure when she had her last tetanus shot. Patient also reports that she was recently admitted to the mental health unit, and was discharged with medications. She has run out of her medications and the provider with whom she was supposed to follow up does not take her insurance. She is requesting refills. Nursing Notes Stated Complaint: HEAD LACERATION Chief Complaint: Laceration Nursing Notes Reviewed: Yes Allergies: Coded Allergies: No Known Allergies (Unverified , 11/15/16) Scheduled Buspirone (Buspirone) 15 Mg Tablet 5 MG PO BID Duloxetine (Cymbalta) 30 Mg Capsule.dr 30 MG PO DAILY Scheduled PRN Ondansetron ODT (Ondansetron ODT) 8 Mg Tab.rapdis 8 MG PO QID PRN PRN For Nausea General Time Seen by MD: 19:32 Chief Complaint Laceration Past Medical History Past Medical History Notes: Injury visit 06/02/2016 for depression with intentional overdose, evaluated by [facility] and discharged to home Past Medical History Anxiety "Back issues" bulimia Reports: GERD Reports: Depression Past Surgical History None Smoking History Never Smoker Social History Independent, lives locally and works at [employer] Previous suicide attempts. Alcohol Use: Denies alcohol use Drug Use: Denies drug use Other Social History: Good social support, Local resident Ambulatory Status Independent Review of Systems Negative unless stated otherwise in history of present illness Physical Exam General: Well appearing, well developed, well nourished, no acute distress. Head: Small, less than 1 cm laceration at apex of scalp, minimal tenderness, no deformity. Head: Atraumatic, normocephalic. Eyes: No scleral icterus or injection. No discharge. Vision grossly intact. ENT: Voice clear, hearing grossly intact. Respiratory: No respiratory distress, no increased work of breathing. Speaks in complete sentences. Skin: Warm and dry. Neurological: Grossly nonfocal. Psychological: alert and oriented. Speech appropriate, linear and logical. Behavior appropriate. Vital Signs Vital Signs Date Time Temp Pulse Resp B/P Pulse Ox O2 Delivery O2 Flow Rate FiO2 11/15/16 20:47 81 121/77 100 Room Air 11/15/16 18:13 37.2 97 16 126/78 100 Room Air Initial VS: Vital signs normal Re-Eval/Medical Decision Med Decision/Clinical Course Otherwise healthy 21-year-old female presents with chief complaint of laceration on the top her head from a michael nail. She is unsure of her tetanus status. Denies immunocompromise. Examination reveals a very small less than 1 cm laceration at the apex of her scalp. Irrigated with normal saline and closed with one staple. Ibuprofen and tetanus booster provided. Patient discharged to home with wound care instructions, primary care referral, emergency return precautions. I also provided a refill of the medications she was started on at her prior [facility] admission. She has been unable to follow-up with her mental health referral because of insurance issues. She assures me she will be able to arrangements in the next month. Patient verbalizes understanding of and consented to plan. Discharge & Departure Primary Impression: Laceration Disposition: Home Discharge Condition All VS Reviewed: Yes Condition: Stable Additional Instructions: Evaluation in the emergency department for a head laceration. There does appear to be a very small laceration at the very top of your head. We cleaned this and closed with one staple. Because you are unsure of your tetanus status , we will provide her with a booster shot. I do not see indication for prophylactic antibiotics. Keep the wound clean with mild soap and water. Do not submerge the wound as in swimming or soaking until the staple is removed. I will write prescriptions for your psychiatric medications. Please make arrangements to be seen by a primary care provider for continued follow-up. I will provide you a referral. Return to emergency department or your primary care provider in 10-14 days to have the staple removed. Return to emergency Department sooner if you notice signs of infection including fever, redness, swelling, pain or any appearance of pus. Referrals: Yumiko Perdomo MD EDSupervising Provider for APC: Jonah Franklin DO copies to: Yumiko Perdomo MD, Seth PA-C Nov 15, 2016 20:06
[2016-11-15] MEDS ORDERED: TdaP Vaccine 0.5 mL Inj IM ONE (20:10)
[2016-11-15] MEDS ORDERED: BUSP15TA3 PO (20:12)
[2016-11-15] MEDS ORDERED: DULO30CA PO (20:12)
[2016-11-15 20:47] VITALS: BP 121/77; PULSE 81; O2SAT 100
== END 2016-11-15 20:50 | disposition home or self-care (01) ==
LOC: SED 18:10
DX: S01.81XA Laceration without foreign body of other part of head, initial encounter (principal); W45.0XXA Nail entering through skin, initial encounter; Y93.9 Activity, unspecified; Y92.9 Unspecified place or not applicable; Y99.9 Unspecified external cause status; Z23 Encounter for immunization